=== PATIENT | male | born 1965 | race Caucasian/White ===

== ENCOUNTER 2019-06-19 15:49 | Observation (INO) | payer MEDICARE, MEDICAID ==
[2019-06-19] MEDS ORDERED: Aspirin Chewable 81 MG TAB ONE (16:10)
[2019-06-19 16:15] LABS: #Basophils 0.1 thou/uL (0.0-0.2); #Eosinphils 0.4 thou/uL (0.0-0.7); #Lymphocytes 2.2 thou/uL (1.20-3.40); #Monocytes 0.8 thou/uL (0.11-0.59); #Neutrophils 3.4 thou/uL (1.40-6.50); %Basophils 1.1 % (0.0-1.0); %Eosinophils 6.4 % (0.0-10.0); %Lymphocytes 31.8 % (21.0-51.0); %Monocytes 11.3 % (0.0-10.0); %Neutrophils 49.3 % (42.0-75.0); Hemoglobin 15.2 g/dL (14.0-18.0); Mean Corpuscular HGB CONC 35.5 g/dL (32.0-36.0); Mean Corpuscular Hemoglobin 30.8 pg (27.0-31.0); Mean Corpuscular Volume 86.6 fL (78.0-98.0); Mean Platelet Volume 6.5 fL (7.4-10.4); Platelet Count 290 thou/uL (130-400); RBC Distribution Width 11.6 % (11.5-14.5); Red Blood Cell (RBC) Count 4.94 mill/uL (4.70-6.10); White Blood Cell (WBC) Count 6.9 thou/uL (4.8-10.8)
--- NOTE | 2019-06-19 16:23 | RAD ---
XR Chest 1 View Portable History: Chest pain Comparison: None. Findings: The lungs are clear. No pneumothorax or effusion. Cardiac silhouette and mediastinal contou rs are within normal limits. Impression: No acute intrathoracic abnormality.
[2019-06-19 16:31] LABS: ALT (SGPT) 51 U/L (8-55); AST (SGOT) 32 U/L (5-34); Albumin 4.2 g/dL (3.5-5.0); Alkaline Phosphatase 93 U/L (40-150); Anion Gap 14 mmol/L (10-20); BUN (Urea Nitrogen) 15 mg/dL (8.4-25.7); Bilirubin, Total 0.4 mg/dL (0.2-1.2); CK (CPK) 139 U/L (30-200); Calc. Creatinine Clearance 0 mL/min (70-130); Calcium 9.2 mg/dL (7.8-10.44); Carbon Dioxide 27 mmol/L (22-29); Chloride 104 mmol/L (98-107); Estimated GFR-MDRD 86; Globulin 3.2 g/dL (2.4-3.5); Glucose 103 mg/dL (70-105); Potassium 3.5 mmol/L (3.5-5.1); Protein, Total 7.4 g/dL (6.0-8.3); Sodium 141 mmol/L (136-145)
[2019-06-19 20:10] VITALS: BMI 26.8
[2019-06-19 20:18] LABS: Troponin I Less than 0.010 ng/mL (< 0.028)
[2019-06-19] MEDS ORDERED: Finasteride 5 MG TAB PO SCH (23:00)
[2019-06-19] MEDS ORDERED: Ondansetron ODT 4 MG TAB PO PRN (23:06)
[2019-06-19] MEDS ORDERED: Ondansetron PF 4 MG/2 ML Vial IVP PRN (23:06)
[2019-06-19] MEDS ORDERED: Acetaminophen 325 MG TAB PO PRN (23:06)
[2019-06-19 23:21] LABS: Troponin I Less than 0.010 ng/mL (< 0.028)
--- NOTE | 2019-06-20 03:11 | HP ---
PRIMARY CARE PHYSICIAN: Dr. Salazar at [facility]. CHIEF COMPLAINT: Chest pain. HISTORY OF PRESENT ILLNESS: Mr. Hooks is a pleasant 54-year-old man with past medical history of hypertension, hyperlipidemia, atrial fibrillation, chronic systolic heart failure, and moderate coronary artery disease, who had presented to [facility] ER earlier today for chest pain that he experienced earlier this morning. He had stated that this chest pain was more of a chest tightness that he had felt that had radiated between his shoulder blades, he states that during this time he had gotten up, went over to give his a kiss and when he stood back up, he had felt the pain. He states that it lasted for roughly 30 minutes and that would come and go throughout the day. He had also noticed that his heart rate drop in the 30s and 40s and showed up in the 90s and it had done this over a period of 5 to 10 minutes. He also experienced some mild shortness of breath during this time as well. Therefore, the family and him spoke and felt that it was best that he was seen in the emergency department. Upon arriving, his chest pain had resolved at that time. He was noted to have a blood pressure systolically in the 100s and his pulse range in the 40s and 50s. His serial troponins were found to be negative. His EKG showed sinus jenny with a heart rate of 52, otherwise unremarkable. The patient has a history of atrial fibrillation, but has been in sinus rhythm and sinus jenny of 10s per patient. He states that he used to be under the care of Dr. Woodall in [place], [employer], he states ever since January that he has had multiple health problems. He states that he had undergone an echocardiogram, which showed a systolic heart failure of about 35%, he states he had then underwent heart catheterization back in March 2019, which displayed moderate coronary artery disease in his LAD. It was at that time that it was determined that his systolic heart function had slightly improved to 45%. He had since been transferred over care to Dr. Jorge Griggs, [employer], who had scheduled the patient for an outpatient echocardiogram, but he has since not undergone this. The patient's D-dimer was found to be negative at 0.40, and portable chest x-ray was also negative at this time. It was determined at that time the patient be transferred to [facility] for further evaluation and management of his symptoms. Upon arriving, the patient denied any fever, chills, any headache, blurred vision, dizziness, any chest pain, palpitations, shortness of breath, abdominal pain, nausea, or vomiting. He had remained in sinus jenny on the monitor with rates in the 40s. REVIEW OF SYSTEMS: All other systems reviewed and found to be negative unless mentioned in the HPI. PAST MEDICAL HISTORY: Hypertension, hyperlipidemia, chronic systolic heart failure, atrial fibrillation, coronary artery disease. PAST SURGICAL HISTORY: Oral surgery. He had all his teeth removed. PSYCHIATRIC HISTORY: None. SOCIAL HISTORY: The patient is a former tobacco smoker. He has a 25 pack-year history. He denies alcohol or illicit drug use. KNOWN ALLERGIES: Tramadol. CURRENT HOME MEDICATIONS: 1. Aspirin 325 mg oral daily. 2. Eliquis 5 mg oral b.i.d. 3. Finasteride 5 mg oral daily. 4. Furosemide 40 mg oral daily. 5. Tamsulosin 0.4 mg oral twice daily. The patient used to take lisinopril; however, was unable to tolerate that, which was transitioned to losartan, which he also could not tolerate. Therefore, these both were discontinued and he used to be on carvedilol; however, this was discontinued secondary to bradycardia. PHYSICAL EXAMINATION: VITAL SIGNS: BP 112/68, pulse 45, respirations 18, temperature 97.8 degrees, O2 saturation 98% on room air. GENERAL: The patient is awake, alert, and oriented x3. He is currently lying comfortably in bed with multiple family members at bedside, in no acute distress at this time. HEENT: Atraumatic, normocephalic. Pupils are round and reactive to light. Extraocular muscles intact. Moist mucous membranes noted. Edentulous noted. NECK: Soft, supple. Trachea midline. CARDIOVASCULAR: Positive S1 and S2. Regular rate and rhythm; however, is bradycardic with rates in the 40s. No murmur auscultated. RESPIRATORY: Clear to auscultation bilaterally. No wheezes, rales, or rhonchi. ABDOMEN: Soft, nontender. Bowel sounds present. MUSCULOSKELETAL: Strength 5+ bilaterally upper and lower extremities. Moves all extremities equal. No edema noted. NEUROLOGIC: Cranial nerves 2 through 12 grossly intact. No focal deficits noted. Speech intact and normal. Gait not assessed. SKIN: Warm, dry, and intact. No rashes. No ulceration noted. PSYCHIATRIC: Good mood and affect. LABORATORY DATA: WBC 6.9, RBC 4.94, hemoglobin 15.2, platelet 290. D-dimer 0.40. Sodium 141, potassium 3.5, anion gap 14, BUN 15, creatinine 0.92, estimated GFR 86, glucose 103, AST 32, ALT 51. Troponin less than 0.010 x2. CK 139. DIAGNOSTIC IMAGING: Portable chest x-ray showed no acute intrathoracic abnormality. ASSESSMENT AND PLAN: 1. Chest pain. The patient with a history of moderate coronary artery disease along with systolic heart failure seen on previous echocardiogram and heart catheterization. We will obtain a repeat echocardiogram and consult Cardiology Services for further evaluation. Serial troponins were found to be negative x2 thus far. He will also be continued on his home regimen at this time. However, his home dose of Eliquis will be held until further recommendation from Cardiology Services. 2. History of systolic heart failure, the patient was found to have an ejection fraction of 35% seen on echocardiogram back in January 2019 and then 45% seen on heart catheterization in March 2019. Continue home dose of furosemide. No other home regimen. He was not able to tolerate lisinopril, losartan, or Coreg. 3. History of moderate coronary artery disease, which was found on heart catheterization, 50% blockage at the left anterior descending. 4. Atrial fibrillation, currently in sinus bradycardia at this time with rates in the 40s. 5. Bradycardia. As per #1, we will consult Cardiology Services and hold any possible causing medications. 6. Hyperlipidemia. He is not on any statin therapy at this time due to side effects. 7. Deep venous thrombosis and gastrointestinal prophylaxis. 8. Code status, full code. DISPOSITION: Pending further workup and clinical findings. Job ID: [id number]
[2019-06-20 05:22] LABS: #Basophils 0.1 thou/uL (0.0-0.2); #Eosinphils 0.4 thou/uL (0.0-0.7); #Lymphocytes 2.1 thou/uL (1.20-3.40); #Monocytes 0.8 thou/uL (0.11-0.59); #Neutrophils 5.2 thou/uL (1.40-6.50); %Basophils 0.7 % (0.0-1.0); %Eosinophils 4.7 % (0.0-10.0); %Lymphocytes 24.7 % (21.0-51.0); %Monocytes 9.4 % (0.0-10.0); %Neutrophils 60.4 % (42.0-75.0); Hemoglobin 15.3 g/dL (14.0-18.0); Mean Corpuscular HGB CONC 33.4 g/dL (32.0-36.0); Mean Corpuscular Volume 89.7 fL (78.0-98.0); Mean Platelet Volume 7.6 fL (7.4-10.4); Platelet Count 282 thou/uL (130-400); RBC Distribution Width 12.1 % (11.5-14.5); Red Blood Cell (RBC) Count 5.09 mill/uL (4.70-6.10); White Blood Cell (WBC) Count 8.7 thou/uL (4.8-10.8)
[2019-06-20 05:36] LABS: Anion Gap 13 mmol/L (10-20); BUN (Urea Nitrogen) 14 mg/dL (8.4-25.7); Calc. Creatinine Clearance 155 mL/min (70-130); Calcium 9.4 mg/dL (7.8-10.44); Carbon Dioxide 26 mmol/L (22-29); Cardiac Risk 3.5 (Less than 4.5); Chloride 103 mmol/L (98-107); Cholesterol 133 mg/dl (< 200 Desired); Estimated GFR-MDRD Greater than 90; Glucose 105 mg/dL (70-105); HDL Cholesterol 38 mg/dL (>60 Neg Risk); LDL Cholesterol, Calculated 84 mg/dL; Potassium 3.5 mmol/L (3.5-5.1); Sodium 138 mmol/L (136-145); Triglycerides 57 mg/dL (Less than 150)
[2019-06-20] MEDS: Tamsulosin HCl 0.4 MG CAP PO SCH (09:08)
[2019-06-20] MEDS: Aspirin 81 mg Enteric Coated Tablet PO SCH (09:08)
[2019-06-20] MEDS: Famotidine 20 MG TAB PO SCH ×2 (09:08→20:58)
[2019-06-20] MEDS: Furosemide 40 MG TAB PO SCH (09:09)
--- NOTE | 2019-06-20 11:08 | CON ---
DATE OF CONSULTATION: 06/20/2019 REASON FOR CONSULTATION: Chest pain and sinus bradycardia. PRIMARY STRAW HAT PLUNGER OPERATOR: Dr. Griggs. HISTORY OF PRESENT ILLNESS: Mr. Hooks is a very pleasant gentleman with a history of vyen-kc-btvraica coronary artery disease, sinus bradycardia, and mild cardiomyopathy, admitted with chest pressure and bradycardia. Mr. Hooks went to the emergency room at [facility] last night. He had chest pain and pressure and he also noticed that his heart rates were in the 30s and 40s. When he gets low heart rate, his blood pressure also decreases. He had negative cardiac enzymes, but was sent here to this institution for further evaluation. The patient did have previous evaluation at [facility], initially had an ejection fraction of 35%, later improved to 45%, could not tolerate beta blockers due to bradycardia. He has been maintained on medicines for congestive heart failure, but just really did not feel well on that, especially when his heart rate go low. PAST MEDICAL HISTORY: 1. Paroxysmal atrial fibrillation. 2. Sinus bradycardia. PAST SURGICAL HISTORY: Oral surgery. MEDICATIONS: Prior to admission; 1. Aspirin. 2. Eliquis. 3. Furosemide. 4. Tamsulosin. REVIEW OF SYSTEMS: CONSTITUTIONAL: No significant weight gain or loss. VISION: No changes. HEARING: No changes. PULMONARY: No cough or wheezing. GASTROINTESTINAL: No nausea, vomiting, or diarrhea. SKIN: No rashes. NEUROLOGIC: No unilateral weakness or numbness. PSYCHIATRIC: No unusual depression or anxiety. PHYSICAL EXAMINATION: GENERAL: This is a pleasant 54-year-old man, resting comfortably, in no distress. VITAL SIGNS: Blood pressure 109/61, pulse in the 40s. HEENT: Eyes, sclerae nonicteric. Mouth, mucous membranes moist. NECK: Supple. No lymphadenopathy. LUNGS: Clear. No wheezing. CARDIAC: Normal S1, normal S2. There is no murmur, rub, or gallop. ABDOMEN: Soft and nontender. EXTREMITIES: Warm and dry. No clubbing or cyanosis or edema. Peripheral pulses are intact. PERTINENT LABORATORY DATA: Cardiac enzymes are negative. EKG shows sinus bradycardia. ASSESSMENT: 1. Symptomatic sinus bradycardia. 2. History of mild cardiomyopathy. 3. Mild coronary artery disease. Catheterization done just over a year ago showing 50% LAD lesion with otherwise mild luminal irregularities. PLAN: Echocardiogram is pending. If the ejection fraction is diminished, would recommend pacemaker defibrillator if it is over 40% pacemaker alone followed by beta-arian. Recommendations will be made after the echocardiogram is available for review and is reviewed. Job ID: [id number]
[2019-06-20] MEDS: Enoxaparin Sodium 40 MG/0.4 ML SYRINGE SC SCH (12:06)
--- NOTE | 2019-06-20 12:47 | PDOC.HOSPP ---
- Subjective Encounter Date: 06/20/19 Encounter Time: 10:00 Subjective: Patient examined and answered all questions from patient and his family. Dr. Flanagan has been by to see patient and we are waiting Echo results to decide the plan. Denies any new complaints. Reports fatigue after exertion, which is chronic. - Objective Vital Signs & Weight: Vital Signs (12 hours) Temp Pulse Resp BP BP Pulse Ox 06/20/19 11:55 97.5 F L 51 L 16 117/71 95 06/20/19 07:42 97.7 F 45 L 16 109/61 98 06/20/19 04:12 46 L 18 86/48 L 97 Weight Weight 105.279 kg Result Diagrams: 06/20/19 04:56 06/20/19 04:56 ROS - Review of Systems Constitutional: reports: malaise - Medication Medications: Active Medications Generic Name Dose Route Start Last Admin Trade Name Freq PRN Reason Stop Dose Admin Aspirin 81 mg 06/20/19 09:00 06/20/19 09:08 Ecotrin PO 81 mg DAILY NIDIA Administration Enoxaparin Sodium 40 mg 06/20/19 09:00 06/20/19 12:06 Lovenox SC 40 mg 0900 NIDIA Administration Famotidine 20 mg 06/20/19 09:00 06/20/19 09:08 Pepcid PO 20 mg BID NIDIA Administration Furosemide 40 mg 06/20/19 09:00 06/20/19 09:09 Lasix PO 40 mg DAILY NIDIA Administration Tamsulosin HCl 0.4 mg 06/20/19 09:00 06/20/19 09:08 Flomax PO 0.4 mg DAILY NIDIA Administration - Exam Heart: RRR, no murmur Heart - other findings: bradycardic Respiratory: normal chest expansion, no tachypnea Gastrointestinal: soft, non-tender Neurological: CN's grossly intact Musculoskeletal: normal strength Psychiatric: normal affect Hosp A/P (1) Chest pain Code(s): R07.9 - CHEST PAIN, UNSPECIFIED Status: Acute (2) Bradycardia Code(s): R00.1 - BRADYCARDIA, UNSPECIFIED Status: Acute (3) Heart failure Code(s): I50.9 - HEART FAILURE, UNSPECIFIED Status: Chronic (4) Hypertension Code(s): I10 - ESSENTIAL (PRIMARY) HYPERTENSION Status: Chronic (5) Hyperlipidemia Code(s): E78.5 - HYPERLIPIDEMIA, UNSPECIFIED Status: Chronic - Plan Awaiting Echo results and discussion by Dr. Flanagan to patient and family on his recommendations once Echo is read. Dr. Flanagan's note stated pacemaker vs AICD under consideration. Patient expressed to me the desire to agree with whichever option will give him the best quality of life. Reports he does not want to prolong his life if either the AICD or pacemaker do not help him get back to doing the things he loves and improve the quality. patient continues to remain bracycardic, BP on the lower side of normal ranges.
[2019-06-20] MEDS ORDERED: Finasteride 5 MG TAB PO SCH (21:00)
[2019-06-21] MEDS ORDERED: CEFAZOLIN 2 GM in Sodium Chloride 0.9% 100 ML IVPB SCH (06:00)
[2019-06-21] MEDS: Enoxaparin Sodium 40 MG/0.4 ML SYRINGE SC SCH (08:13)
[2019-06-21] MEDS: Aspirin 81 mg Enteric Coated Tablet PO SCH (08:13)
[2019-06-21] MEDS: Famotidine 20 MG TAB PO SCH (08:14)
[2019-06-21] MEDS: Tamsulosin HCl 0.4 MG CAP PO SCH (08:14)
[2019-06-21] MEDS: Furosemide 40 MG TAB PO SCH (08:14)
[2019-06-21] MEDS ORDERED: Lidocaine 1% (PF) 30 ML VIAL ONE ×2 (09:45→11:38)
[2019-06-21] MEDS ORDERED: ceFAZolin Sodium (SDC) 2 GM/100 ML BAG ONE ×3 (11:14→11:15)
[2019-06-21] MEDS ORDERED: Midazolam HCl 2 mg/2 ml Vial ONE ×2 (11:22→11:35)
[2019-06-21] MEDS ORDERED: Fentanyl 100 MCG/2 ML VIAL ONE (11:23)
[2019-06-21] MEDS ORDERED: Acetaminophen/Codeine 30-300mg Tablet PO PRN ×2 (12:45)
--- NOTE | 2019-06-21 12:58 | RAD ---
EXAM: Portable chest PROVIDED CLINICAL HISTORY: Post cardiac device placement COMPARISON: 06/19/2019 FINDINGS: Interval placement of left subclavian cardiac pacing device, with lead tips projecting over expected locations of RA and RV. Cardiac and mediastinal silhouette is within normal limits. No focal consolidation, pleural fluid or pneumothorax evident. IMPRESSION: No evidence for an acute cardiopulmonary process.
[2019-06-21] MEDS: Cephalexin 250 MG CAP PO SCH ×2 (13:34→17:43)
--- NOTE | 2019-06-21 13:45 | CON ---
DATE OF CONSULTATION: 06/21/2019 HISTORY OF PRESENT ILLNESS: I am seeing Mr. 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 His problems are; 1. Near syncopal spell with tachy-jenny syndrome, sick sinus syndrome, and intolerance to beta blockers. 2. Paroxysmal atrial fibrillation, previously documented by event monitors. 3. Atypical chest pains on presentation. a. Left heart catheterization on March 18, 2019, demonstrates a 50% mid LAD, plaquing of the RCA and circumflex only. b. Reduced LVEF at the 35% improving to 45% more recently. Risk factors including hyperlipidemia and tobacco abuse. ALLERGIES: TRAMADOL. MEDICATIONS: At home included; 1. Tylenol. 2. Flomax. 3. Furosemide. 4. Proscar. 5. Aspirin. 6. Eliquis 5 mg twice a day. SUBJECTIVE: Mr. Hooks was admitted with symptoms of chest pains shooting to his back in between the shoulder blades, somewhat positional, lasts roughly about 30 minutes. He also noted though his heart is fluctuating. Heart rates in the 30s up to the 90s in period of 5 to 10 minutes. He had associated dyspnea. By the time EMS got there, his heart rates were in the 40s and 50s. His blood pressure was also in the 100s. Previously, he was noted to have atrial fibrillation by event monitor. He was known to have atrial fibrillation episodes per the prior technical engineer note. He was intolerant to beta blockers, hence marked bradycardia and near syncopal spells. On monitor, he continues to have episodes of slower heart beatings in the 40s and 50s. No atrial fibrillation recurrence is noted or since the admission. He is feeling overall better currently. Denies chest pains. No fever, chills, or cough. No stroke-like symptoms. No neurological deficits. Usually, he is on an Eliquis medication, but that has been on hold since admit. Rest of 12-point review of system otherwise unremarkable. PAST MEDICAL HISTORY: Past history as above and the patient has had issues for the last 6 months with rapid heartbeats, chest pains, and underwent a heart catheterization by a technical engineer in [place] and was placed on Eliquis. Again, beta arian was not tolerated at that time. Now, he is cared by Dr. Griggs as an outpatient. PAST SURGICAL HISTORY: Significant for oral surgery and all of his teeth were removed in the past. SOCIAL HISTORY: The patient is a former tobacco smoker, 25 pack per years. No ETOH or drug abuse. FAMILY HISTORY: Not contributory. PHYSICAL EXAMINATION: VITAL SIGNS: Blood pressure 100/58, heart rate 50, respirations 18, temperature 97.7 degrees Fahrenheit, and oxygen saturation is 94% to 96%. GENERAL: Alert and oriented man, in no apparent distress. NECK: Supple. Jugular veins not distended. CHEST: Coarse without crackles. HEART: Sounds are regular to rate and rhythm. No murmur or gallop. ABDOMEN: Benign. Bowel sounds positive. EXTREMITIES: Lower extremities without edema, clubbing, or cyanosis. Pulses are adequate. NEUROLOGIC: The patient is nonfocal. MUSCULOSKELETAL: Without joint swelling or deformity. SKIN: Without rash. DATABASE: EKGs at baseline reveal sinus bradycardia, rate of 52 beats per minute. No significant ST-T changes. LABORATORY DATA: White cell count is 8.7, hemoglobin is 15.3, and platelet count is 282. The D-dimer is 0.4. Sodium 138, potassium 3.5, BUN is 14, and creatinine 0.83. The patient's total cholesterol is 133, LDL 84, and HDL 38. TSH 1.11. 2D echo report from this admission reveals LVEF 40% to 45%. ASSESSMENT AND PLAN: Mr. Hooks is a 54-year-old man with history of cardiomyopathy, likely nonischemic, although he has some mild nonobstructive to gvyh-hy-smmjkber nonspecific coronary artery disease as noted above. His LVEF seems to be improved overtime. He is on angiotensin-converting enzyme inhibitor only, hence he cannot tolerate beta-arian sufficiently. He does have episodes of atrial fibrillation, high symptomatic, but he also is markedly symptomatic with bradycardia even in the absence of beta blockers. He has dizzy spells and although has not completely passed out. He clearly has sinus node disease and some degree of tachy-jenny syndrome. We discussed treatment options. We discussed the benefit of pacing in his condition, which would allow us to increase his beta-arian medication or antiarrhythmic agents to control his atrial fibrillation. Alternatives of ablation procedure also discussed, but at this point, he is not interested in that just yet. The detail of the procedure, including risk of infection, bleeding, pneumothorax, tamponade, device malfunction, lead dislodgement, and recalls. He understands and willing to proceed. We will proceed with pacemaker as possible. Thank you again for letting me to participate in the care of this patient. Job ID: [id number]
[2019-06-21] MEDS ORDERED: Iopamidol 370 76% 50 ML VIAL FS ONE (15:05)
[2019-06-21 15:43] VITALS: BP 125/79; TEMP 97.8
[2019-06-21] MEDS ORDERED: Carvedilol 6.25 MG TAB PO SCH (21:00)
[2019-06-21] MEDS ORDERED: Tamsulosin HCl 0.4 MG CAP PO SCH (21:00)
--- NOTE | 2019-06-25 15:39 | EKG ---
Test Reason : CHEST Blood Pressure : / mmHG Vent. Rate : 052 BPM Atrial Rate : 052 BPM P-R Int : 154 ms QRS Dur : 082 ms QT Int : 472 ms P-R-T Axes : 024 004 026 degrees QTc Int : 438 ms Sinus bradycardia Otherwise normal ECG Confirmed by CROW MARTIN ([id number]), desk editor TERENCE QUICK ([id number]) on 06/25/2019 3:39:20 PM Referred By: Cedric MARTIN Confirmed By:CROW MARTIN
== END 2019-06-21 17:59 | disposition home or self-care (01) ==
LOC: SCSER 15:49 → 2SW 17:53
PROVIDERS: ADMIT Family Medicine; ATTEND Family Medicine
PROC: 0JH607Z Insertion of Cardiac Resynchronization Pacemaker Pulse Generator into Chest Subcutaneous Tissue and Fascia, Open Approach (ICD-10-PCS; principal; 2019-06-19)
PROC: 02H73JZ Insertion of Pacemaker Lead into Left Atrium, Percutaneous Approach (ICD-10-PCS; 2019-06-19)
PROC: 02HK3JZ Insertion of Pacemaker Lead into Right Ventricle, Percutaneous Approach (ICD-10-PCS; 2019-06-19)
PROC: 02HL3JZ Insertion of Pacemaker Lead into Left Ventricle, Percutaneous Approach (ICD-10-PCS; 2019-06-19)
DX: I49.5 Sick sinus syndrome (principal); I11.0 Hypertensive heart disease with heart failure; I50.42 Chronic combined systolic (congestive) and diastolic (congestive) heart failure; E78.5 Hyperlipidemia, unspecified; I25.10 Atherosclerotic heart disease of native coronary artery without angina pectoris; I48.0 Paroxysmal atrial fibrillation; R07.89 Other chest pain; H54.8 Legal blindness, as defined in USA; Z79.82 Long term (current) use of aspirin; Z79.01 Long term (current) use of anticoagulants; Z79.899 Other long term (current) drug therapy; Z87.891 Personal history of nicotine dependence; Z88.5 Allergy status to narcotic agent
CPT/HCPCS: 33208; 36005; 71045 ×2; 75820; 80048; 80053; 80061; 82550; 84443; 84484 ×2; 85025 ×2; 85379; 93005; 93306; 96372; 99285; C1785; C1898; G0378 ×4; 36415; 99152; 99153; J0690; J1650; J2001; J2250; J3010; J3490

== ENCOUNTER 2019-08-16 18:26 | Inpatient (IN) | payer MEDICARE, MEDICAID ==
[2019-08-16] MEDS ORDERED: Acetaminophen 325 MG TAB PO PRN (21:01)
[2019-08-16] MEDS ORDERED: Vancomycin HCl 1 GM in Premix Bag 1 BAG IVPB SCH (21:15)
[2019-08-16] MEDS ORDERED: Ondansetron PF 4 MG/2 ML Vial IVP PRN (23:10)
[2019-08-16] MEDS ORDERED: Ondansetron ODT 4 MG TAB PO PRN (23:10)
[2019-08-16] MEDS ORDERED: Acetaminophen 500 MG TAB PO PRN (23:12)
--- NOTE | 2019-08-17 04:20 | HP ---
PRIMARY CARE DOCTOR: None reported. CODE STATUS: Full code. TIME OF EVALUATION: 10:55 p.m. CHIEF COMPLAINT: Redness in the pacemaker pocket. HISTORY OF PRESENT ILLNESS: This is a 54-year-old male patient with past medical history of recent placement of pacemaker. Also, the patient is legally blind, coronary artery disease, congestive heart failure, hyperlipidemia, high cholesterol, came to the hospital after having redness surrounding the area of the recent pacemaker placed pocket. That redness was associated with purulent drainage from surgical wound. Symptoms have been present for the past few days. After some antibiotic had been given, symptoms have gotten worse. Dr. Welch has seen the patient and has admitted the patient. The patient likely to go for procedure tomorrow to get the pacemaker removed. Symptoms were mild with no clear triggers, no alleviating factors. REVIEW OF SYSTEMS: CONSTITUTIONAL: No fever, chills, or generalized weakness. RESPIRATORY: No cough, sputum production or shortness of breath. CARDIOVASCULAR: No chest pain or palpitation. GASTROINTESTINAL: No nausea, vomiting, diarrhea, or abdominal pain. DAIRY NUTRITION CONSULTANT: No dizziness, headache or feeling lightheaded. GENITOURINARY: No burning on urination. EXTREMITIES: No leg swelling. SKIN: Warm and intact. No pallor. No rash. No redness except for the area surrounding the PPM pocket that is red and swollen with purulent drainage. All other systems were reviewed and negative except for the findings mentioned above. PAST MEDICAL HISTORY: As mentioned in the HPI. PAST SURGICAL HISTORY: Oral surgery, all teeth removed and also recent pacemaker placement. PSYCHIATRIC HISTORY: No previous psych history. SOCIAL HISTORY: No drug use. He is a former tobacco user. Smokes cigarettes. The patient quit smoking in the past year. Tobacco history, smoked for 25 years. FAMILY HISTORY: Reviewed and noncontributory to current presentation. KNOWN ALLERGIES: Tramadol. REPORTED MEDICATIONS: Aspirin tablets, Eliquis, finasteride, furosemide, tamsulosin. PHYSICAL EXAMINATION: VITAL SIGNS: On presentation, 105/71 for blood pressure with heart rate 58, respiratory rate was 18, and temperature 98.3. GENERAL APPEARANCE: The patient is alert and oriented, not in acute distress. HEENT: Eyes, normal conjunctivae. Moist oral mucosa. Anicteric. No JVD. RESPIRATORY: Bilateral air entry. No rales. No wheezes. Symmetric expansion. CARDIOVASCULAR: Normal rate, regular rhythm. No murmurs. No edema. ABDOMEN: Soft. Normal bowel sounds. MUSCULOSKELETAL: Baseline range of motion and strength. SKIN: Warm and intact. No pallor. No rash except for the area surrounding the pacemaker pocket is red, swollen, fluctuant and has purulent drainage from the surgical wound. Capillary refill seems to be intact. NEURO: No evidence of any new focal weakness. Cranial nerves seems to be intact. PSYCH: The patient is in good mood. No anxiety. Optimal judgment. LABORATORY DATA: Labs were ordered. They are pending and will need to be followed. ASSESSMENT AND PLAN: The patient will be placed in the hospital with following medical problems: 1. The patient has infection of the pacemaker pocket. Procedure was done recently. The patient has been started on vancomycin and Dr. Caban has been consulted. Dr. Welch will do the pacemaker removal likely this morning and will plan for treatment of infection and then place a new one. 2. Skin cellulitis due to infection of the pocket. The patient receiving antibiotics and treatment as above. 3. History of gout, this is chronic, seems to be stable. Reconcile home medications. 4. History of BPH, is chronic, stable, reconcile home medications. 5. History of systolic dysfunction with ejection fraction of 40-45% in the last echo. We will reconcile home medication and adjust treatment as needed. This is chronic and seems to be stable. 6. Deep venous thrombosis prophylaxis. Job ID: [id number]
[2019-08-17 05:13] LABS: #Eosinphils 0.4 thou/uL (0.0-0.7); #Lymphocytes 2.1 thou/uL (1.20-3.40); #Monocytes 0.7 thou/uL (0.11-0.59); #Neutrophils 2.8 thou/uL (1.40-6.50); %Basophils 0.7 % (0.0-1.0); %Eosinophils 6.8 % (0.0-10.0); %Lymphocytes 35.1 % (21.0-51.0); %Monocytes 11.3 % (0.0-10.0); %Neutrophils 46.1 % (42.0-75.0); Hemoglobin 14.5 g/dL (14.0-18.0); Mean Corpuscular HGB CONC 34.2 g/dL (32.0-36.0); Mean Corpuscular Hemoglobin 30.6 pg (27.0-31.0); Mean Corpuscular Volume 89.6 fL (78.0-98.0); Mean Platelet Volume 7.3 fL (7.4-10.4); Platelet Count 281 thou/uL (130-400); RBC Distribution Width 11.8 % (11.5-14.5); Red Blood Cell (RBC) Count 4.72 mill/uL (4.70-6.10); White Blood Cell (WBC) Count 6.1 thou/uL (4.8-10.8)
[2019-08-17 05:32] LABS: Anion Gap 12 mmol/L (10-20); BUN (Urea Nitrogen) 16 mg/dL (8.4-25.7); Calc. Creatinine Clearance 154 mL/min (70-130); Calcium 9.2 mg/dL (7.8-10.44); Carbon Dioxide 30 mmol/L (22-29); Chloride 102 mmol/L (98-107); Estimated GFR-MDRD Greater than 90; Glucose 105 mg/dL (70-105); Potassium 3.9 mmol/L (3.5-5.1); Sodium 140 mmol/L (136-145)
[2019-08-17] MEDS: Aspirin 81 mg Enteric Coated Tablet PO SCH (08:57)
[2019-08-17] MEDS: Enoxaparin Sodium 40 MG/0.4 ML SYRINGE SC SCH (08:57)
[2019-08-17] MEDS: Tamsulosin HCl 0.4 MG CAP PO SCH (08:57)
[2019-08-17] MEDS ORDERED: Vancomycin HCl 1 GM in Premix Bag 1 BAG IVPB SCH (09:00)
[2019-08-17] MEDS ORDERED: Lidocaine 1% (PF) 30 ML VIAL ONE (14:46)
[2019-08-17] MEDS ORDERED: Midazolam HCl 2 mg/2 ml Vial ONE (14:52)
[2019-08-17] MEDS ORDERED: Fentanyl 100 MCG/2 ML VIAL ONE ×3 (14:52→16:27)
[2019-08-17] MEDS ORDERED: Propofol 500 MG/50 ML VIAL ONE (14:52)
[2019-08-17] MEDS ORDERED: Ondansetron HCl/PF 4 MG/2 ML Vial IVP PRN (15:38)
[2019-08-17] MEDS ORDERED: HYDROmorphone 2 MG/ML VIAL SLOW IVP PRN (15:38)
[2019-08-17] MEDS ORDERED: Promethazine HCl 25 MG/ML VIAL SLOW IVP PRN (15:38)
[2019-08-17] MEDS ORDERED: Promethazine HCl 25 MG/ML VIAL IM PRN (15:38)
--- NOTE | 2019-08-17 15:40 | CON ---
DATE OF CONSULTATION: 08/17/2019 REASON FOR CONSULTATION: Pacemaker infection. HISTORY OF PRESENT ILLNESS: A 54-year-old with history of sick sinus syndrome, coronary artery disease, blindness, and hyperlipidemia, who recently underwent placement of pacemaker in left subclavian position and now he has developed drainage with inflammatory changes, pain, and swelling. Dr. Welch has given the patient Keflex twice in the outpatient setting, but that has not improved the situation. The patient is having the pacer removed. He otherwise denies headaches. No sore throat, odynophagia, or dysphagia. No dyspnea. He does have some chest pain at the pacer site, but no abdominal pain. No genitourinary symptoms. No diarrhea. No constipation. No joint symptoms. PAST MEDICAL HISTORY: Sick sinus syndrome, visual impairment, coronary artery disease, CHF, hyperlipidemia, pacemaker insertion recently, and gout. PAST SURGICAL HISTORY: Removal of teeth. PSYCH HISTORY: Negative. SOCIAL HISTORY: Former smoker. [place]. . 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 FAMILY HISTORY: Noncontributory. ALLERGIES: TRAMADOL. CURRENT MEDICATIONS: 1. Tylenol. 2. Ecotrin. 3. Colchicine. 4. Lovenox. 5. Proscar. 6. Lasix. 7. Zofran. 8. Tamsulosin. 9. Vancomycin. PHYSICAL EXAMINATION: VITAL SIGNS: Have been normal since admission. SKIN: Shows the area of the pacemaker pocket, which is swollen and tender. There is a mild pink erythema extending towards the lower left lateral chest and towards the clavicle. The incision right above the pacer pocket site with small opening, which is draining purulent exudate. No lymphadenopathy. HEENT: Noncontributory. LUNGS: Clear to auscultation and percussion. HEART: S1 and S2 without murmurs. ABDOMEN: Soft, not distended or tender. No ascites. No bladder distention. EXTREMITIES: No joint inflammatory activity. Moves all extremities equally. NEUROLOGIC: He knows his name, recognizes family members. Follows commands. LABORATORY STUDIES: White cell count is 6.1, hemoglobin 14.5, and platelets 281. Chemistry showed normal creatinine and a sample from the pacer site drainage was submitted for cultures. No imaging studies are seen for this time. ASSESSMENT: 1. Sick sinus syndrome, congestive heart failure. 2. Pacemaker insertion, now with an obvious infection of the pacer pocket site. DISCUSSION: This case would not be eligible for conservative management. He needs to have the device and the leads removed and then, a new device placed in the contralateral side subsequently. We will wait for the culture results and see which drug to be used for the next few days for treatment. If blood cultures remain negative, then treatment would last until there is full granulation of the area and resolution of inflammatory process. The nature of the medication to be determined by the culture results as well as the duration of treatment. Job ID: [id number]
--- NOTE | 2019-08-17 16:51 | OP ---
DATE OF PROCEDURE: 08/17/2019 PROCEDURE PERFORMED: Pacemaker extraction. ADDITIONAL REFERRING PHYSICIAN: Dr. Griggs. REASON FOR PROCEDURE: Mr. Hooks is a 54-year-old man with history of tachy-jenny syndrome, sick sinus syndrome, and paroxysmal atrial fibrillation, who is presenting with marked bradycardia originally back in June, underwent a dual-chamber pacemaker implantation. He did develop a hematoma and subsequent difficult healing of his prepectoral pocket was noted. He otherwise discharged in worsening pocket tenderness. There is a possibility of infection spread to the pacemaker pocket and a fistula formation. Pacing was programmed down and no ventricular pacing noted at 30 beats per minute at this point. DESCRIPTION OF PROCEDURE: The patient received general anesthesia by Anesthesia specialist. After adequate level of sedation achieved, the lidocaine was used to anesthetized the prepectoral area after adequate prep and drape. An incision was made over the prior incision and the device was extracted. The leads were removed as well after unwinding the fixation coil mechanism, which were removed with simple traction without difficulty. Following that, hemostasis was obtained and the pocket was packed with iodoform strips and pressure dressing applied. Cine revealed no change in cardiac silhouette. The patient tolerated the procedure well. PLAN: 1. Continue antibiotics. 2. Culture sent for wound culture, follow on that. 3. Monitor on telemetry number. 4. Consider pacemaker implantation shortly once no systemic infection is ascertained. 5. Hold anticoagulants for now. Job ID: [id number]
[2019-08-17] MEDS ORDERED: Acetaminophen/Codeine 30-300mg Tablet PO PRN (17:22)
[2019-08-17] MEDS: Furosemide 40 MG TAB PO SCH (18:36)
[2019-08-17] MEDS: Acetaminophen/Codeine 30-300mg Tablet PO PRN (19:26)
[2019-08-17] MEDS: Finasteride 5 MG TAB PO SCH (20:23)
[2019-08-18] MEDS: Acetaminophen/Codeine 30-300mg Tablet PO PRN ×5 (00:24→20:06)
[2019-08-18] MEDS: Furosemide 40 MG TAB PO SCH (08:49)
[2019-08-18] MEDS: Tamsulosin HCl 0.4 MG CAP PO SCH (08:49)
[2019-08-18] MEDS: Aspirin 81 mg Enteric Coated Tablet PO SCH (08:49)
[2019-08-18] MEDS: Enoxaparin Sodium 40 MG/0.4 ML SYRINGE SC SCH (08:58)
[2019-08-18] MEDS: Morphine 2 MG/ML SYRINGE SLOW IVP PRN (09:41)
[2019-08-18] MEDS ORDERED: Lidocaine 4% Topical Sol 50 ML BOT TOP SCH (09:45)
--- NOTE | 2019-08-18 12:22 | PDOC.CPN ---
- Subjective Date: 08/18/19 Time: 08:00 Interval history: overall feeling well this AM. +pain at PPM explant site. + drainage from PPM pocket. denies fever, chills, malaise - Review of Systems General: denies: fever/chills, weight/appetite/sleep changes, night sweats, fatigue Cardiovascular: denies: chest pain, palpitation, edema, paroxysmal nocturnal dyspnea, orthopnea Gastrointestinal: denies: nausea, vomiting, diarrhea, constipation, abd pain, GI bleeding Musculoskeletal: denies: pain, tenderness, stiffness, swelling, arthritis/ arthralgias Neurological: denies: numbness, syncope, seizure, weakness - Objective Allergies/Adverse Reactions: Allergies Allergy/AdvReac Type Severity Reaction Status Date / Time allopurinol Allergy Rash Verified 08/16/19 19:49 tramadol Allergy syncope Verified 08/16/19 19:49 Visit Medications: Current Medications Acetaminophen (Tylenol) 650 mg PO Q4H PRN PRN Reason: Fever/MILD Pain 1-3 Acetaminophen (Tylenol) 1,000 mg PO BID PRN PRN Reason: Pain Last Admin: 08/17/19 08:56 Dose: 1,000 mg Acetaminophen/Codeine Phosphate (Tylenol #3) 1 tab PO Q4H PRN PRN Reason: Mild Pain (1-3) Acetaminophen/Codeine Phosphate (Tylenol #3) 2 tab PO Q4H PRN PRN Reason: Moderate Pain (4-6) Last Admin: 08/18/19 11:10 Dose: 2 tab Aspirin (Ecotrin) 81 mg PO DAILY [facility] Last Admin: 08/18/19 08:49 Dose: 81 mg Colchicine (Colchicine) 0.6 mg PO DAILY [facility] Last Admin: 08/18/19 09:50 Dose: 0.6 mg Enoxaparin Sodium (Lovenox) 40 mg SC 0900 [facility] Last Admin: 08/18/19 08:58 Dose: Not Given Finasteride (Proscar) 5 mg PO HS [facility] Last Admin: 08/17/19 20:23 Dose: 5 mg Furosemide (Lasix) 40 mg PO DAILY [facility] Last Admin: 08/18/19 08:49 Dose: 40 mg Vancomycin HCl 2 gm/ Sodium (Chloride) 500 mls @ 250 mls/hr IVPB 0100,1300 [facility] Last Admin: 08/18/19 00:26 Dose: 500 mls Lidocaine HCl (Xylocaine 4% Topical Ladan) 0 ml TOP NOW NIDIA Stop: 08/18/19 21:00 Last Admin: 08/18/19 09:51 Dose: 1 bot Miscellaneous Medication (Pharmacy To Dose) 1 each IVPB PRN PRN PRN Reason: Pharmacy to dose Morphine Sulfate (Morphine) 2 mg SLOW IVP Q6H PRN PRN Reason: Severe Pain (7-10) Last Admin: 08/18/19 09:41 Dose: 2 mg Ondansetron HCl (Zofran Odt) 4 mg PO Q6H PRN PRN Reason: Nausea/Vomiting Ondansetron HCl (Zofran) 4 mg IVP Q6H PRN PRN Reason: Nausea/Vomiting Sodium Chloride (Flush - Normal Saline) 10 ml IVF Q12HR [facility] Last Admin: 08/18/19 09:49 Dose: 10 ml Sodium Chloride (Flush - Normal Saline) 10 ml IVF PRN PRN PRN Reason: Saline Flush Tamsulosin HCl (Flomax) 0.4 mg PO DAILY [facility] Last Admin: 08/18/19 08:49 Dose: 0.4 mg Vital Signs & Weight: Vital Signs Temp Pulse Resp BP Pulse Ox 08/18/19 12:02 97.7 F 66 14 114/74 94 L 08/18/19 07:50 98.2 F 56 L 11 L 108/57 L 95 08/18/19 04:00 98.3 F 58 L 18 110/63 94 L 08/18/19 00:53 97.9 F 56 L 16 119/64 96 Weight 243 lb 3 oz - Physical Exam General: alert & oriented x3, appears well, no apparent distress HEENT: mucus membranes moist, normocephaly Neck: supple neck, midline trachea Cardiac: regular rate and rhythm, no murmur Lungs: clear to auscultation, normal breath sounds Abdomen: unremarkable, active bowel sounds Extremities: no edema Skin: other (drsg to left chest wall CDI from PPM explant) - Labs Result Diagrams: 08/17/19 04:49 08/17/19 04:49 - Telemetry Sinus rhythms and dysrhythmias: sinus rhythm - Assessment/Plan Assessment/Plan: 1. Infected pacemaker/pocket - s/p explant on 08/17 - pocket culture sent 08/17: growing staph aureus - wound swab by ID sent: growing staph aureus - Infectious disease managing anbx - blood cultures pending (no growth thus far) - PRN T#3. Morphine IVP to help with acute pain during wound vac application/ management 2. Tachy-jenny syndrome with sinus node dysfunction - stopped all AV giancarlo blocking agents. so far heart rates are stable. No immediate need for temp pacer 3. Parox Atrial fibrillation - low burden previously seen on PPM - no OAC at this time CHADS2-VAC: 1 (hx CAD). On ASA which is adequate 4. JOHN -ordered CPAP Wound care consulted for wound vac to pocket and wound management. So far his heart rates have remained stable off beta blockers which were being used to treat his AFib. 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 Addendum: Spoke with Dr. Caban this afternoon. Starting bactroban to nares BID x 14 days and also hibiclens bath daily while hospitalized. His recommendation is to wait for blood culture results to finalize before PPM is placed. Likely DC home tomorrow and future OP PPM implant. Will discuss this with patient tomorrow
[2019-08-18 12:34] LABS: Vancomycin, Trough 15.8 ug/mL
--- NOTE | 2019-08-18 14:06 | PDOC.HOSPP ---
- Subjective Subjective: Seen and examined. Getting wound care currently and being pre-medicated with morphine. Discuss code status with significant other at bedside, recommended discussing after AICD placed. Patient has become fatigued with severe illness over the past two months when this all started. 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 - Objective Vital Signs & Weight: Vital Signs (12 hours) Temp Pulse Resp BP Pulse Ox 08/18/19 12:02 97.7 F 66 14 114/74 94 L 08/18/19 07:50 98.2 F 56 L 11 L 108/57 L 95 08/18/19 04:00 98.3 F 58 L 18 110/63 94 L Weight Weight 243 lb 3 oz I&O: 08/17/19 08/18/19 08/19/19 06:59 06:59 06:59 Intake Total 740 Balance 740 Result Diagrams: 08/17/19 04:49 08/17/19 04:49 Hospitalist ROS - Review of Systems All other systems reviewed; all pertinent +/- noted in HPI/Subj - Medication Medications: Active Medications Generic Name Dose Route Start Last Admin Trade Name Freq PRN Reason Stop Dose Admin Acetaminophen 1,000 mg 08/16/19 23:12 08/17/19 08:56 Tylenol PO 1,000 mg BID PRN Administration Pain Acetaminophen/Codeine Phosphate 2 tab 08/17/19 17:22 08/18/19 11:10 Tylenol #3 PO 2 tab Q4H PRN Administration Moderate Pain (4-6) Aspirin 81 mg 08/17/19 09:00 08/18/19 08:49 Ecotrin PO 81 mg DAILY [facility]IDIA Administration Colchicine 0.6 mg 08/18/19 09:00 08/18/19 09:50 Colchicine PO 0.6 mg DAILY [facility] Administration Enoxaparin Sodium 40 mg 08/17/19 09:00 08/18/19 08:58 Lovenox SC Not Given 09 NIDIA Finasteride 5 mg 08/17/19 21:00 08/17/19 20:23 Proscar PO 5 mg HS N[facility]IA Administration Furosemide 40 mg 08/17/19 09:00 08/18/19 08:49 Lasix PO 40 mg DAILY [facility] Administration Vancomycin HCl 2 gm/ Sodium 500 mls @ 250 mls/hr 08/17/19 01:00 08/18/19 13: 13 Chloride IVPB 500 mls 0100,1300 N[facility]IA Administration Lidocaine HCl 0 ml 08/18/19 09:45 08/18/19 09:51 Xylocaine 4% Topical Ladan TOP 08/18/19 21:00 1 bot NOW NIDIA Administration Morphine Sulfate 2 mg 08/18/19 09:13 08/18/19 09:41 Morphine SLOW IVP 2 mg Q6H PRN Administration Severe Pain (7-10) Sodium Chloride 10 ml 08/17/19 09:00 08/18/19 09:49 Flush - Normal Saline IVF 10 ml Q12HR NIDIA Administration Tamsulosin HCl 0.4 mg 08/17/19 09:00 08/18/19 08:49 Flomax PO 0.4 mg DAILY NIDIA Administration - Exam General Appearance: NAD, awake alert Eye: PERRL ENT: moist mucosa Neck: supple, symmetric, no lymphadenopathy Heart: RRR, no murmur, no gallops Respiratory: CTAB, no wheezes, no rales, no ronchi Gastrointestinal: soft, non-tender, non-distended, no guarding, no rigidity Extremities: no edema Skin: no lesions, no rashes Neurological: cranial nerve grossly intact, no weakness Musculoskeletal: no muscle wasting Psychiatric: normal affect, A&O x 3 Hosp A/P (1) Bradycardia Code(s): R00.1 - BRADYCARDIA, UNSPECIFIED Status: Chronic (2) Chest pain Code(s): R07.9 - CHEST PAIN, UNSPECIFIED Status: Chronic (3) Heart failure Code(s): I50.9 - HEART FAILURE, UNSPECIFIED Status: Chronic (4) Hyperlipidemia Code(s): E78.5 - HYPERLIPIDEMIA, UNSPECIFIED Status: Chronic (5) Hypertension Code(s): I10 - ESSENTIAL (PRIMARY) HYPERTENSION Status: Chronic - Plan Plan: medical unit with telemetry cardiology/electrophysiology specialists consultation, recommendations appreciated infectious disease consultation, recommendations appreciated AICD to be replaced when able IV antibiotics per infectious disease specialist wound with Staphylococcus aureus, sensitivity pending blood cultures negative to date continue home medications as able
--- NOTE | 2019-08-18 17:19 | PRG ---
DATE OF SERVICE: 08/18/2019 SUBJECTIVE: Mr. Hooks had removal of the device. He has mild pain at the site, better than yesterday. OBJECTIVE: VITAL SIGNS: He has been afebrile since admission. LUNGS: Clear. HEART: S1 and S2, regular rate. ABDOMEN: Soft. Not distended or tender. LABORATORY DATA: White cell count 6.1. Cultures with Staphylococcus aureus, pending susceptibility testing. Two sets of blood culture, no growth thus far. ASSESSMENT: Sick sinus syndrome with pacemaker placement, now postop infection with Staphylococcus aureus, pending susceptibility results. If the patient's blood cultures remain negative, then could discharge on oral antimicrobial therapy guided by the results of the susceptibility studies tomorrow. Once the infection is resolved and there is good granulation tissue, the final results of blood cultures out, then he is eligible for replacement with a new pacemaker. Job ID: [id number]
[2019-08-18] MEDS: Finasteride 5 MG TAB PO SCH (20:06)
[2019-08-18] MEDS: Mupirocin 2% Ointment 22 GM Tube TOP SCH (21:27)
[2019-08-19] MEDS: Acetaminophen/Codeine 30-300mg Tablet PO PRN ×5 (00:13→21:33)
[2019-08-19] MEDS: Furosemide 40 MG TAB PO SCH (08:48)
[2019-08-19] MEDS: Tamsulosin HCl 0.4 MG CAP PO SCH (08:48)
[2019-08-19] MEDS: Aspirin 81 mg Enteric Coated Tablet PO SCH (08:48)
[2019-08-19] MEDS: Enoxaparin Sodium 40 MG/0.4 ML SYRINGE SC SCH (08:50)
[2019-08-19] MEDS: Mupirocin 2% Ointment 22 GM Tube TOP SCH ×2 (08:51→21:47)
[2019-08-19 10:00] LABS: Anion Gap 12 mmol/L (10-20); BUN (Urea Nitrogen) 12 mg/dL (8.4-25.7); Calc. Creatinine Clearance 162 mL/min (70-130); Carbon Dioxide 29 mmol/L (22-29); Chloride 99 mmol/L (98-107); Estimated GFR-MDRD Greater than 90; Glucose 117 mg/dL (70-105); Potassium 3.6 mmol/L (3.5-5.1); Sodium 136 mmol/L (136-145)
[2019-08-19] MEDS ORDERED: Propofol 1,000 MG/100 ML VIAL IV ONE (10:26)
--- NOTE | 2019-08-19 14:37 | PDOC.HOSPP ---
- Subjective Subjective: Seen and examined. Many questions asked, all answered in detail. Patient happy with plan of care. Patient describes difficulty initiating urination he is on finasteride and tamsulosin, tamsulosin does have room to go up. Cultures pending on Staphylococcus aureus sensitivity this a.m. - Objective Vital Signs & Weight: Vital Signs (12 hours) Temp Pulse Resp BP Pulse Ox 08/19/19 08:00 97.9 F 48 L 18 111/69 100 08/19/19 04:16 97.4 F L 48 L 17 114/68 98 Weight Admit Weight 241 lb Weight 243 lb 3 oz Result Diagrams: 08/17/19 04:49 08/19/19 09:30 Hospitalist ROS - Review of Systems All other systems reviewed; all pertinent +/- noted in HPI/Subj - Medication Medications: Active Medications Generic Name Dose Route Start Last Admin Trade Name Freq PRN Reason Stop Dose Admin Acetaminophen 1,000 mg 08/16/19 23:12 08/17/19 08:56 Tylenol PO 1,000 mg BID PRN Administration Pain Acetaminophen/Codeine Phosphate 2 tab 08/17/19 17:22 08/19/19 10:58 Tylenol #3 PO 2 tab Q4H PRN Administration Moderate Pain (4-6) Aspirin 81 mg 08/17/19 09:00 08/19/19 08:48 Ecotrin PO 81 mg DAILY [facility]IA Administration Colchicine 0.6 mg 08/18/19 09:00 08/19/19 08:50 Colchicine PO 0.6 mg DAILY [facility] Administration Enoxaparin Sodium 40 mg 08/17/19 09:00 08/19/19 08:50 Lovenox SC Not Given 09 NIDIA Finasteride 5 mg 08/17/19 21:00 08/18/19 20:06 Proscar PO 5 mg HS [facility]IA Administration Furosemide 40 mg 08/17/19 09:00 08/19/19 08:48 Lasix PO 40 mg DAILY [facility] Administration Vancomycin HCl 2 gm/ Sodium 500 mls @ 250 mls/hr 08/17/19 01:00 08/19/19 12: 56 Chloride IVPB 500 mls 0100,1300 [facility] Administration Morphine Sulfate 2 mg 08/18/19 09:13 08/18/19 09:41 Morphine SLOW IVP 2 mg Q6H PRN Administration Severe Pain (7-10) Mupirocin 1 gm 08/18/19 21:00 08/19/19 08:51 Bactroban 2% Ointment TOP 1 applic BID NIDIA Administration Sodium Chloride 10 ml 08/17/19 09:00 08/19/19 08:56 Flush - Normal Saline IVF 10 ml Q12HR NIDIA Administration - Exam General Appearance: NAD Eye: PERRL, anicteric sclera ENT: normocephalic atraumatic, moist mucosa Neck: supple, symmetric, no lymphadenopathy Heart: no murmur, no gallops, no rubs Respiratory: CTAB, no wheezes, no rales, no ronchi Gastrointestinal: soft, non-tender, non-distended, no guarding, no rigidity Extremities: no edema Skin: no rashes Neurological: cranial nerve grossly intact, normal sensation to touch, no focal deficits Musculoskeletal: no muscle wasting Psychiatric: normal affect, A&O x 3 Hosp A/P (1) Bradycardia Code(s): R00.1 - BRADYCARDIA, UNSPECIFIED Status: Chronic (2) Chest pain Code(s): R07.9 - CHEST PAIN, UNSPECIFIED Status: Chronic (3) Heart failure Code(s): I50.9 - HEART FAILURE, UNSPECIFIED Status: Chronic (4) Hyperlipidemia Code(s): E78.5 - HYPERLIPIDEMIA, UNSPECIFIED Status: Chronic (5) Hypertension Code(s): I10 - ESSENTIAL (PRIMARY) HYPERTENSION Status: Chronic - Plan Plan: medical unit with telemetry cardiology/electrophysiology specialists consultation, recommendations appreciated infectious disease consultation, recommendations appreciated AICD to be replaced when able IV antibiotics per infectious disease specialist wound with Staphylococcus aureus, sensitivity pending blood cultures negative to date Finasteride for BPH Increase Flomax for BPH continue home medications as able
--- NOTE | 2019-08-19 14:42 | PDOC.CPN ---
- Subjective Date: 08/19/19 Time: 14:39 Interval history: Overall feels well today. No dizziness or passing out. No fever/chills. No palpitations or chest pain. He is having pain around the wound vac/PPM explant site. - Review of Systems General: denies: fever/chills, weight/appetite/sleep changes, night sweats, fatigue Respiratory: denies: cough, congestion, shortness of breath, exercise intolerance Cardiovascular: denies: chest pain, palpitation, edema, paroxysmal nocturnal dyspnea, orthopnea Gastrointestinal: denies: nausea, vomiting, diarrhea, constipation, abd pain, GI bleeding Musculoskeletal: reports: pain. denies: tenderness, stiffness, swelling, arthritis/arthralgias - Objective Allergies/Adverse Reactions: Allergies Allergy/AdvReac Type Severity Reaction Status Date / Time allopurinol Allergy Rash Verified 08/16/19 19:49 tramadol Allergy syncope Verified 08/16/19 19:49 Visit Medications: Current Medications Acetaminophen (Tylenol) 650 mg PO Q4H PRN PRN Reason: Fever/MILD Pain 1-3 Acetaminophen (Tylenol) 1,000 mg PO BID PRN PRN Reason: Pain Last Admin: 08/17/19 08:56 Dose: 1,000 mg Acetaminophen/Codeine Phosphate (Tylenol #3) 1 tab PO Q4H PRN PRN Reason: Mild Pain (1-3) Acetaminophen/Codeine Phosphate (Tylenol #3) 2 tab PO Q4H PRN PRN Reason: Moderate Pain (4-6) Last Admin: 08/19/19 10:58 Dose: 2 tab Aspirin (Ecotrin) 81 mg PO DAILY [facility] Last Admin: 08/19/19 08:48 Dose: 81 mg Colchicine (Colchicine) 0.6 mg PO DAILY [facility] Last Admin: 08/19/19 08:50 Dose: 0.6 mg Enoxaparin Sodium (Lovenox) 40 mg SC 0900 [facility] Last Admin: 08/19/19 08:50 Dose: Not Given Finasteride (Proscar) 5 mg PO HS [facility] Last Admin: 08/18/19 20:06 Dose: 5 mg Furosemide (Lasix) 40 mg PO DAILY [facility] Last Admin: 08/19/19 08:48 Dose: 40 mg Vancomycin HCl 2 gm/ Sodium (Chloride) 500 mls @ 250 mls/hr IVPB 0100,1300 [facility] Last Admin: 08/19/19 12:56 Dose: 500 mls Miscellaneous Medication (Pharmacy To Dose) 1 each IVPB PRN PRN PRN Reason: Pharmacy to dose Morphine Sulfate (Morphine) 2 mg SLOW IVP Q6H PRN PRN Reason: Severe Pain (7-10) Last Admin: 08/18/19 09:41 Dose: 2 mg Mupirocin (Bactroban 2% Ointment) 1 gm TOP BID [facility] Last Admin: 08/19/19 08:51 Dose: 1 applic Ondansetron HCl (Zofran Odt) 4 mg PO Q6H PRN PRN Reason: Nausea/Vomiting Ondansetron HCl (Zofran) 4 mg IVP Q6H PRN PRN Reason: Nausea/Vomiting Sodium Chloride (Flush - Normal Saline) 10 ml IVF Q12HR [facility] Last Admin: 08/19/19 08:56 Dose: 10 ml Sodium Chloride (Flush - Normal Saline) 10 ml IVF PRN PRN PRN Reason: Saline Flush Tamsulosin HCl (Flomax) 0.8 mg PO DAILY [facility] Vital Signs & Weight: Vital Signs Temp Pulse Resp BP Pulse Ox 08/19/19 08:00 97.9 F 48 L 18 111/69 100 08/19/19 04:16 97.4 F L 48 L 17 114/68 98 Admit Weight 241 lb Weight 243 lb 3 oz - Physical Exam General: alert & oriented x3 HEENT: mucus membranes moist Neck: supple neck, no JVD/HJR Cardiac: regular rate and rhythm, no murmur Lungs: clear to auscultation, normal breath sounds Neuro: grossly intact Abdomen: unremarkable, active bowel sounds Skin: other (wound vac to left chest wall) - Labs Result Diagrams: 08/17/19 04:49 08/19/19 09:30 - Telemetry Sinus rhythms and dysrhythmias: sinus rhythm - Assessment/Plan Assessment/Plan: 1. Infected pacemaker/pocket - s/p explant on 08/17 - pocket culture sent 08/17: growing staph aureus - wound swab by ID sent: growing staph aureus - Infectious disease managing anbx - blood cultures pending (no growth thus far) - PRN T#3. Morphine IVP to help with acute pain during wound vac application/ management 2. Tachy-jenny syndrome with sinus node dysfunction - stopped all AV giancarlo blocking agents. so far heart rates are stable~50bpm. No immediate need for temp pacer 3. Parox Atrial fibrillation - low burden previously seen on PPM - no OAC at this time CHADS2-VAC: 1 (hx CAD). On ASA which is adequate 4. JOHN -ordered CPAP. Wound care consulted for wound vac to pocket and wound management. Case management involved to assist in arranging home health vs wound care closer to where he lives. So far his heart rates have remained stable off beta blockers. If his AF is manageable without betablocker we may be able to avoid re-implant of PPM. Eventually, I feel he would likely benefit from a PVAI but we will address this as OP. For now I feel we are safe just watching his rhythm for any recurrent AF , holding off on PPM implant. OK for DC by EP once medical issues are stable and home arrangement are in place.
[2019-08-19] MEDS: Finasteride 5 MG TAB PO SCH (21:33)
[2019-08-20] MEDS: Acetaminophen/Codeine 30-300mg Tablet PO PRN ×6 (01:47→22:51)
[2019-08-20] MEDS: Morphine 2 MG/ML SYRINGE SLOW IVP PRN (08:54)
[2019-08-20] MEDS: Aspirin 81 mg Enteric Coated Tablet PO SCH (09:00)
[2019-08-20] MEDS: Furosemide 40 MG TAB PO SCH (09:00)
[2019-08-20] MEDS: Tamsulosin HCl 0.4 MG CAP PO SCH (09:00)
[2019-08-20] MEDS: Mupirocin 2% Ointment 22 GM Tube TOP SCH ×2 (09:01→20:44)
[2019-08-20] MEDS: Enoxaparin Sodium 40 MG/0.4 ML SYRINGE SC SCH (09:01)
[2019-08-20] MEDS: diphenhydrAMINE 25 MG CAP PO SCH (13:24)
--- NOTE | 2019-08-20 15:00 | PDOC.HOSPP ---
- Subjective Subjective: Seen and examined. Cultures confirmed to be MRSA, patient responding to vancomycin therapy. Many questions were asked, all answered in detail. Patient is getting his wound VAC change today per wound care. sr. strategic sourcing manager to set up wound VAC for the home setting. Antibiotics per ID, to be determined. - Objective Vital Signs & Weight: Vital Signs (12 hours) Temp Pulse Resp BP Pulse Ox 08/20/19 08:00 96.6 F L 50 L 17 114/63 99 08/20/19 04:00 97.7 F 52 L 18 119/72 97 Weight Admit Weight 241 lb Weight 237 lb 9.6 oz I&O: 08/19/19 08/20/19 08/21/19 06:59 06:59 06:59 Intake Total 1190 Balance 1190 Result Diagrams: 08/17/19 04:49 08/19/19 09:30 Hospitalist ROS - Review of Systems All other systems reviewed; all pertinent +/- noted in HPI/Subj - Medication Medications: Active Medications Generic Name Dose Route Start Last Admin Trade Name Freq PRN Reason Stop Dose Admin Acetaminophen 1,000 mg 08/16/19 23:12 08/17/19 08:56 Tylenol PO 1,000 mg BID PRN Administration Pain Acetaminophen/Codeine Phosphate 2 tab 08/17/19 17:22 08/20/19 13:57 Tylenol #3 PO 2 tab Q4H PRN Administration Moderate Pain (4-6) Aspirin 81 mg 08/17/19 09:00 08/20/19 09:00 Ecotrin PO 81 mg DAILY NIDIA Administration Colchicine 0.6 mg 08/18/19 09:00 08/20/19 09:01 Colchicine PO Not Given DAILY NIDIA Diphenhydramine HCl 25 mg 08/20/19 13:00 08/20/19 13:24 Benadryl PO 25 mg 0100,1300 NIDIA Administration Enoxaparin Sodium 40 mg 08/17/19 09:00 08/20/19 09:01 Lovenox SC Not Given 0900 NIDIA Finasteride 5 mg 08/17/19 21:00 08/19/19 21:33 Proscar PO 5 mg HS NIDIA Administration Furosemide 40 mg 08/17/19 09:00 08/20/19 09:00 Lasix PO 40 mg DAILY NIDIA Administration Vancomycin HCl 2 gm/ Sodium 500 mls @ 250 mls/hr 08/17/19 01:00 08/20/19 13: 56 Chloride IVPB 500 mls 0100,1300 NIDIA Administration Morphine Sulfate 2 mg 08/18/19 09:13 08/20/19 08:54 Morphine SLOW IVP 2 mg Q6H PRN Administration Severe Pain (7-10) Mupirocin 1 gm 08/18/19 21:00 08/20/19 09:01 Bactroban 2% Ointment TOP 1 applic BID NIDIA Administration Sodium Chloride 10 ml 08/17/19 09:00 08/20/19 09:01 Flush - Normal Saline IVF 10 ml Q12HR NIDIA Administration Tamsulosin HCl 0.8 mg 08/20/19 09:00 08/20/19 09:00 Flomax PO 0.8 mg DAILY NIDIA Administration - Exam General Appearance: NAD, awake alert Eye: anicteric sclera ENT: normocephalic atraumatic, moist mucosa Neck: supple, symmetric, no lymphadenopathy Heart: no murmur, no gallops, no rubs Heart - other findings: regular rate this AM Respiratory: CTAB, no wheezes, no rales, no ronchi Gastrointestinal: soft, non-tender, non-distended, no guarding, no rigidity Extremities: no edema Skin: no rashes Neurological: cranial nerve grossly intact, no focal deficits Musculoskeletal: no muscle wasting Psychiatric: normal affect, A&O x 3 Hosp A/P (1) Bradycardia Code(s): R00.1 - BRADYCARDIA, UNSPECIFIED Status: Chronic (2) Chest pain Code(s): R07.9 - CHEST PAIN, UNSPECIFIED Status: Chronic (3) Heart failure Code(s): I50.9 - HEART FAILURE, UNSPECIFIED Status: Chronic (4) Hyperlipidemia Code(s): E78.5 - HYPERLIPIDEMIA, UNSPECIFIED Status: Chronic (5) Hypertension Code(s): I10 - ESSENTIAL (PRIMARY) HYPERTENSION Status: Chronic - Plan Plan: medical unit with telemetry cardiology/electrophysiology specialists consultation, recommendations appreciated infectious disease consultation, recommendations appreciated AICD to be replaced when able IV antibiotics per infectious disease specialist wound with Staphylococcus aureus, sensitivity noted to be MRSA blood cultures negative to date Finasteride for BPH Increased Flomax for BPH continue home medications as able
--- NOTE | 2019-08-20 15:53 | PRG ---
DATE OF SERVICE: 08/20/2019 SUBJECTIVE: No headaches. No change in visual symptoms, sore throat, odynophagia, or dysphagia. Still with what he describes as the same pain that he had before in the left shoulder, left axillary rib area, and the pacer pocket site. Pacer has been removed with the leads. No dyspnea. No abdominal pain or diarrhea. No genitourinary symptoms. OBJECTIVE: VITAL SIGNS: T-max 98.5, blood pressure 117/72, pulse 61, respirations 20, O2 saturation 95. GENERAL: Appears in no distress. EXTREMITIES: Left shoulder area with a negative pressure dressing, very mild erythema, moderate tenderness around the area there including the clavicle and the anterior axillary region, left side. LUNGS: Clear. HEART: S1 and S2. Regular rate. ABDOMEN: Soft. Not distended or tender. No ascites. No bladder distention. NEUROLOGIC: Cognitive function appears to be intact. LABORATORY DATA: White cell count has not been repeated. Creatinine is 0.83. Microbiology with MRSA, which is susceptible to clindamycin, doxycycline, rifampin, Bactrim, and vancomycin. ASSESSMENT AND DISCUSSION: Sick sinus syndrome, pacemaker placement, and postop infection with methicillin-resistant staphylococcus aureus. We will continue vancomycin and then for discharge, planning doxycycline and rifampin for 2 weeks. Follow up in the outpatient setting. Job ID: [id number]
[2019-08-20] MEDS: Finasteride 5 MG TAB PO SCH (20:44)
[2019-08-21] MEDS: diphenhydrAMINE 25 MG CAP PO SCH ×2 (00:16→12:33)
[2019-08-21] MEDS: Acetaminophen/Codeine 30-300mg Tablet PO PRN ×5 (04:01→21:26)
[2019-08-21] MEDS: Aspirin 81 mg Enteric Coated Tablet PO SCH (08:15)
[2019-08-21] MEDS: Furosemide 40 MG TAB PO SCH (08:15)
[2019-08-21] MEDS: Tamsulosin HCl 0.4 MG CAP PO SCH (08:15)
[2019-08-21] MEDS: Enoxaparin Sodium 40 MG/0.4 ML SYRINGE SC SCH (08:16)
[2019-08-21] MEDS: Mupirocin 2% Ointment 22 GM Tube TOP SCH ×2 (08:17→22:57)
[2019-08-21 12:52] LABS: Vancomycin, Trough 22.8 ug/mL
--- NOTE | 2019-08-21 15:44 | PDOC.HOSPP ---
- Subjective Subjective: Seen and examined. Progressing as expected. Wound VAC in place. Dr. Welch asked the patient to be NPO past midnight for possible pacemaker placement tomorrow morning. When I discussed this the with the patient he is concerned that it would get reinfected and he is not sure that he wants one. Patient with MRSA in wound, planning for transition to oral antibiotics on discharge. - Objective Vital Signs & Weight: Vital Signs (12 hours) Temp Pulse Resp BP Pulse Ox 08/21/19 12:00 98.7 F 55 L 18 117/70 97 08/21/19 08:00 97.0 F L 49 L 18 124/72 97 08/21/19 07:54 97 08/21/19 04:00 96.6 F L 52 L 16 108/71 92 L Weight Admit Weight 241 lb Weight 239 lb I&O: 08/20/19 08/21/19 08/22/19 06:59 06:59 06:59 Intake Total 1190 2400 Balance 1190 2400 Result Diagrams: 08/17/19 04:49 08/19/19 09:30 Hospitalist ROS - Review of Systems All other systems reviewed; all pertinent +/- noted in HPI/Subj - Medication Medications: Active Medications Generic Name Dose Route Start Last Admin Trade Name Freq PRN Reason Stop Dose Admin Acetaminophen 1,000 mg 08/16/19 23:12 08/17/19 08:56 Tylenol PO 1,000 mg BID PRN Administration Pain Acetaminophen/Codeine Phosphate 2 tab 08/17/19 17:22 08/21/19 12:34 Tylenol #3 PO 2 tab Q4H PRN Administration Moderate Pain (4-6) Aspirin 81 mg 08/17/19 09:00 08/21/19 08:15 Ecotrin PO 81 mg DAILY NIDIA Administration Colchicine 0.6 mg 08/18/19 09:00 08/21/19 08:16 Colchicine PO Not Given DAILY NIDIA Diphenhydramine HCl 25 mg 08/20/19 13:00 08/21/19 12:33 Benadryl PO 25 mg 0100,1300 NIDIA Administration Enoxaparin Sodium 40 mg 08/17/19 09:00 08/21/19 08:16 Lovenox SC Not Given 0900 NIDIA Finasteride 5 mg 08/17/19 21:00 08/20/19 20:44 Proscar PO 5 mg HS NIDIA Administration Furosemide 40 mg 08/17/19 09:00 08/21/19 08:15 Lasix PO 40 mg DAILY NIDIA Administration Morphine Sulfate 2 mg 08/18/19 09:13 08/20/19 08:54 Morphine SLOW IVP 2 mg Q6H PRN Administration Severe Pain (7-10) Mupirocin 1 gm 08/18/19 21:00 08/21/19 08:17 Bactroban 2% Ointment TOP 1 applic BID NIDIA Administration Sodium Chloride 10 ml 08/17/19 09:00 08/21/19 08:17 Flush - Normal Saline IVF 10 ml Q12HR NIDIA Administration Sodium Chloride 10 ml 08/16/19 21:02 08/21/19 01:02 Flush - Normal Saline IVF 10 ml PRN PRN Administration Saline Flush Tamsulosin HCl 0.8 mg 08/20/19 09:00 08/21/19 08:15 Flomax PO 0.8 mg DAILY NIDIA Administration - Exam General Appearance: NAD, awake alert Eye: anicteric sclera ENT: normocephalic atraumatic, moist mucosa Neck: supple, symmetric, no lymphadenopathy Heart: no murmur, no gallops, no rubs Respiratory: CTAB, no wheezes, no rales, no ronchi Gastrointestinal: soft, non-tender, non-distended, no guarding, no rigidity Extremities: no edema Skin: no lesions, no rashes Skin - other findings: Wound vac left upper chest Neurological: cranial nerve grossly intact, no weakness Musculoskeletal: normal strength Psychiatric: normal affect, A&O x 3 Hosp A/P (1) Bradycardia Code(s): R00.1 - BRADYCARDIA, UNSPECIFIED Status: Chronic (2) Chest pain Code(s): R07.9 - CHEST PAIN, UNSPECIFIED Status: Chronic (3) Heart failure Code(s): I50.9 - HEART FAILURE, UNSPECIFIED Status: Chronic (4) Hyperlipidemia Code(s): E78.5 - HYPERLIPIDEMIA, UNSPECIFIED Status: Chronic (5) Hypertension Code(s): I10 - ESSENTIAL (PRIMARY) HYPERTENSION Status: Chronic - Plan Plan: medical unit with telemetry cardiology/electrophysiology specialists consultation, recommendations appreciated infectious disease consultation, recommendations appreciated AICD to be replaced when able, possibly tomorrow per document design specialist - though patient is worried that it will become infected again IV antibiotics per infectious disease specialist, Oral ABX on D/c wound with Staphylococcus aureus, sensitivity noted to be MRSA blood cultures negative to date Finasteride for BPH Flomax for BPH continue home medications as able
[2019-08-21] MEDS: Finasteride 5 MG TAB PO SCH (21:28)
[2019-08-21] MEDS ORDERED: Nortriptyline 10 MG CAP ONE (22:13)
[2019-08-22] MEDS: diphenhydrAMINE 25 MG CAP PO SCH ×2 (00:25→14:57)
[2019-08-22] MEDS: Acetaminophen/Codeine 30-300mg Tablet PO PRN ×5 (01:23→21:49)
[2019-08-22] MEDS: Vancomycin HCl 1.75 GM in Sodium Chloride 0.9% 500 ML IVPB SCH ×4 (01:26→14:54)
[2019-08-22 08:13] LABS: #Eosinphils 0.5 thou/uL (0.0-0.7); #Lymphocytes 2.1 thou/uL (1.20-3.40); #Monocytes 0.5 thou/uL (0.11-0.59); #Neutrophils 1.4 thou/uL (1.40-6.50); %Basophils 0.2 % (0.0-1.0); %Eosinophils 10.9 % (0.0-10.0); %Lymphocytes 47.9 % (21.0-51.0); %Monocytes 10.2 % (0.0-10.0); %Neutrophils 30.8 % (42.0-75.0); Hemoglobin 14.8 g/dL (14.0-18.0); Mean Corpuscular HGB CONC 34.6 g/dL (32.0-36.0); Mean Corpuscular Hemoglobin 31.2 pg (27.0-31.0); Mean Corpuscular Volume 90.3 fL (78.0-98.0); Mean Platelet Volume 7.2 fL (7.4-10.4); Platelet Count 291 thou/uL (130-400); RBC Distribution Width 11.8 % (11.5-14.5); Red Blood Cell (RBC) Count 4.74 mill/uL (4.70-6.10); White Blood Cell (WBC) Count 4.5 thou/uL (4.8-10.8)
[2019-08-22 08:39] LABS: Anion Gap 11 mmol/L (10-20); BUN (Urea Nitrogen) 10 mg/dL (8.4-25.7); Calc. Creatinine Clearance 148 mL/min (70-130); Calcium 9.2 mg/dL (7.8-10.44); Carbon Dioxide 30 mmol/L (22-29); Chloride 102 mmol/L (98-107); Estimated GFR-MDRD 89; Glucose 93 mg/dL (70-105); Potassium 4.1 mmol/L (3.5-5.1); Sodium 139 mmol/L (136-145)
[2019-08-22] MEDS: Furosemide 40 MG TAB PO SCH (08:54)
[2019-08-22] MEDS: Tamsulosin HCl 0.4 MG CAP PO SCH (08:54)
[2019-08-22] MEDS: Aspirin 81 mg Enteric Coated Tablet PO SCH (08:54)
[2019-08-22] MEDS: Enoxaparin Sodium 40 MG/0.4 ML SYRINGE SC SCH ×2 (08:56→09:03)
--- NOTE | 2019-08-22 11:45 | PRG ---
DATE OF SERVICE: 08/22/2019 SUBJECTIVE: Mr. Hooks seems to be doing fair over the weekend. He has mild fatigue, but no other extreme bradycardic symptoms. He denied dizziness or loss of consciousness. No stroke-like symptoms. No neurological deficits. Denies fever, chills, or cough. His pacemaker explant site is with wound VAC with mild discomfort only. OBJECTIVE DATA: VITAL SIGNS: Blood pressure is 114/71, heart rate 46, respirations 16, and temperature 97.4 degrees Fahrenheit. GENERAL: Alert and oriented man, in no apparent distress. NECK: Supple. Jugular veins not distended. CHEST: Coarse without crackles. HEART: Sounds are regular to rate and rhythm. No murmur or gallop. ABDOMEN: Benign. Bowel sounds positive. EXTREMITIES: Lower extremities without edema, clubbing, or cyanosis. The precordial pacemaker explant site is in wound VAC without reaction. DATABASE: Telemetry strips reviewed revealing sinus rhythm, sinus bradycardia, lowest in the 40s mostly at nighttime sleeping hours, high 40s with 50s at rest with increasing heart rate with exercise. LABORATORY DATA: White cell count is 4.5, hemoglobin 14.8, platelet count is 291. Today, sodium 139, potassium 4.1, BUN is 10, and creatinine 0.9. The microbiology reviewed revealing no growth x2 days from the blood cultures on the 8th x2 sets. From wound cultures, methicillin-resistant Staph aureus has been resulted, sensitive to rifampin, clindamycin, and doxycycline. ASSESSMENT AND PLAN: Mr. Hooks is a pleasant 54-year-old man with history of sick sinus syndrome and paroxysmal atrial fibrillation, who underwent a dual-chamber pacemaker implantation, then required explant due to pacemaker pocket infection. Now, it seems to be healing up well, although his pocket wound did grow methicillin-resistant Staphylococcus aureus. He is adequately treated with vancomycin on that. Dr. Caban, the ID specialist, has evaluated him and recommended vancomycin for discharge and then switching to doxycycline and rifampin for 2 weeks. The wound VAC seems to be adequately treating the pacemaker extraction site on left precordial area, which was left open for secondary healing. I discussed the future treatment options with the patient. Although, he still has moderate bradycardia. He is not extreme symptomatic mostly at rest at nighttime. He seems to have racing his heart rate adequately with exertion. So far, no severe bradycardic symptoms and therefore, pacemaker implantation is not emergent. We discussed the option of continued antibiotic therapy as advised and bleeding with the implant to minimize the chance of infection. Also, depending on his symptoms, we could consider pulmonary venous isolation procedure in the future. For now, we will hold off on the anticoagulant, hence he has no recurrent atrial fibrillation seen. He is advised to start that if he experiences rapid heartbeats with atrial fibrillation as well. He will be discharged as per Dr. Caban' recommendation of doxycycline and rifampin for 2 weeks. I will see him back in 4 to 6 weeks for followup and in 2 weeks for wound check. For now, we will hold anticoagulation as well and also avoid beta-blockers. Job ID: [id number]
[2019-08-22] MEDS: Mupirocin 2% Ointment 22 GM Tube TOP SCH ×2 (12:02→20:39)
--- NOTE | 2019-08-22 13:04 | PDOC.HOSPP ---
- Subjective Subjective: Seen and examined. Patient has elected that he would like to hold off on replacement of pacemaker as he is afraid that it will become infected. Patient otherwise progressing as expected. Wound VAC in place. Case management to set up wound VAC in the home setting to be managed by home healthcare. - Objective Vital Signs & Weight: Vital Signs (12 hours) Temp Pulse Resp BP Pulse Ox 08/22/19 08:00 97.6 F 46 L 16 114/71 97 08/22/19 03:38 97.7 F 49 L 16 121/66 99 08/22/19 02:29 48 L 115/69 97 Weight Admit Weight 241 lb Weight 240 lb I&O: 08/21/19 08/22/19 08/23/19 06:59 06:59 06:59 Intake Total 2400 720 Balance 2400 720 Result Diagrams: 08/22/19 07:44 08/22/19 07:44 Hospitalist ROS - Review of Systems All other systems reviewed; all pertinent +/- noted in HPI/Subj - Medication Medications: Active Medications Generic Name Dose Route Start Last Admin Trade Name Freq PRN Reason Stop Dose Admin Acetaminophen 1,000 mg 08/16/19 23:12 08/17/19 08:56 Tylenol PO 1,000 mg BID PRN Administration Pain Acetaminophen/Codeine Phosphate 2 tab 08/17/19 17:22 08/22/19 12:01 Tylenol #3 PO 2 tab Q4H PRN Administration Moderate Pain (4-6) Aspirin 81 mg 08/17/19 09:00 08/22/19 08:54 Ecotrin PO 81 mg DAILY NIDIA Administration Colchicine 0.6 mg 08/18/19 09:00 08/22/19 08:55 Colchicine PO Not Given DAILY NIDIA Diphenhydramine HCl 25 mg 08/20/19 13:00 08/22/19 00:25 Benadryl PO 25 mg 0100,1300 NIDIA Administration Enoxaparin Sodium 40 mg 08/17/19 09:00 08/22/19 09:03 Lovenox SC Not Given 0900 NIDIA Finasteride 5 mg 08/17/19 21:00 08/21/19 21:28 Proscar PO 5 mg HS NIDIA Administration Furosemide 40 mg 08/17/19 09:00 08/22/19 08:54 Lasix PO 40 mg DAILY NIDIA Administration Vancomycin HCl 1.75 gm/ Sodium 500 mls @ 250 mls/hr 08/22/19 01:00 08/22/19 02:40 Chloride IVPB 500 mls 0100,1300 NIDIA Administration Morphine Sulfate 2 mg 08/18/19 09:13 08/20/19 08:54 Morphine SLOW IVP 2 mg Q6H PRN Administration Severe Pain (7-10) Mupirocin 1 gm 08/18/19 21:00 08/22/19 12:02 Bactroban 2% Ointment TOP 1 applic BID NIDIA Administration Sodium Chloride 10 ml 08/17/19 09:00 08/22/19 08:56 Flush - Normal Saline IVF 10 ml Q12HR NIDIA Administration Sodium Chloride 10 ml 08/16/19 21:02 08/21/19 01:02 Flush - Normal Saline IVF 10 ml PRN PRN Administration Saline Flush Tamsulosin HCl 0.8 mg 08/20/19 09:00 08/22/19 08:54 Flomax PO 0.8 mg DAILY NIDIA Administration - Exam General Appearance: NAD, awake alert Eye: anicteric sclera ENT: normocephalic atraumatic, moist mucosa Neck: supple, symmetric, no lymphadenopathy Heart: no murmur, no gallops, no rubs Heart - other findings: Bradycardia Respiratory: CTAB, no wheezes, no rales Gastrointestinal: soft, non-tender, non-distended, normal bowel sounds, no guarding, no rigidity Extremities: no edema Skin: no lesions, no rashes Skin - other findings: Wound vac in position Neurological: cranial nerve grossly intact, no weakness Musculoskeletal: no muscle wasting Psychiatric: normal affect, A&O x 3 Hosp A/P (1) Bradycardia Code(s): R00.1 - BRADYCARDIA, UNSPECIFIED Status: Chronic (2) Chest pain Code(s): R07.9 - CHEST PAIN, UNSPECIFIED Status: Chronic (3) Heart failure Code(s): I50.9 - HEART FAILURE, UNSPECIFIED Status: Chronic (4) Hyperlipidemia Code(s): E78.5 - HYPERLIPIDEMIA, UNSPECIFIED Status: Chronic (5) Hypertension Code(s): I10 - ESSENTIAL (PRIMARY) HYPERTENSION Status: Chronic - Plan Plan: medical unit with telemetry cardiology/electrophysiology specialists consultation, recommendations appreciated infectious disease consultation, recommendations appreciated Permanent pacemaker on hold for now IV antibiotics per infectious disease specialist, Oral ABX on D/c wound with Staphylococcus aureus, sensitivity noted to be MRSA blood cultures negative to date Finasteride for BPH Flomax for BPH continue home medications as able CM to help with setting up wound vac in the home setting
[2019-08-22] MEDS: Finasteride 5 MG TAB PO SCH (20:39)
[2019-08-23] MEDS: Vancomycin HCl 1.75 GM in Sodium Chloride 0.9% 500 ML IVPB SCH ×2 (02:03→13:30)
[2019-08-23] MEDS: diphenhydrAMINE 25 MG CAP PO SCH ×2 (02:03→13:30)
[2019-08-23] MEDS: Acetaminophen/Codeine 30-300mg Tablet PO PRN ×4 (02:04→16:25)
[2019-08-23 06:28] VITALS: BMI 28.2
[2019-08-23] MEDS ORDERED: Tamsulosin HCl 0.4 MG CAP PO SCH (09:00)
[2019-08-23] MEDS: Aspirin 81 mg Enteric Coated Tablet PO SCH (09:14)
[2019-08-23] MEDS: Furosemide 40 MG TAB PO SCH (09:14)
[2019-08-23] MEDS: Tamsulosin HCl 0.4 MG CAP PO SCH ×2 (09:14→11:45)
[2019-08-23] MEDS: Morphine 2 MG/ML SYRINGE SLOW IVP PRN (09:19)
[2019-08-23] MEDS: Mupirocin 2% Ointment 22 GM Tube TOP SCH (09:28)
[2019-08-23] MEDS: Enoxaparin Sodium 40 MG/0.4 ML SYRINGE SC SCH (09:29)
[2019-08-23] MEDS ORDERED: Tamsulosin HCl 0.4 MG CAP ONE (10:53)
--- NOTE | 2019-08-23 14:53 | PDOC.CPN ---
- Subjective Date: 08/23/19 (EP FOLLOW UP NOTE) Time: 08:00 Interval history: Overall feels well today. No dizziness or passing out. No fever/chills. No palpitations or chest pain. He is having pain around the wound vac/PPM explant site. + fatigue. - Review of Systems General: reports: fatigue. denies: fever/chills, weight/appetite/sleep changes , night sweats Respiratory: denies: cough, congestion, shortness of breath, exercise intolerance Cardiovascular: denies: chest pain, palpitation, edema, paroxysmal nocturnal dyspnea, orthopnea Gastrointestinal: denies: nausea, vomiting, diarrhea, constipation, abd pain, GI bleeding Musculoskeletal: reports: pain (at explant site with dressing changes). denies : tenderness, stiffness, swelling, arthritis/arthralgias Neurological: denies: numbness, syncope, seizure, weakness - Objective Allergies/Adverse Reactions: Allergies Allergy/AdvReac Type Severity Reaction Status Date / Time allopurinol Allergy Rash Verified 08/16/19 19:49 tramadol Allergy syncope Verified 08/16/19 19:49 Visit Medications: Current Medications Acetaminophen (Tylenol) 650 mg PO Q4H PRN PRN Reason: Fever/MILD Pain 1-3 Acetaminophen (Tylenol) 1,000 mg PO BID PRN PRN Reason: Pain Last Admin: 08/17/19 08:56 Dose: 1,000 mg Acetaminophen/Codeine Phosphate (Tylenol #3) 1 tab PO Q4H PRN PRN Reason: Mild Pain (1-3) Acetaminophen/Codeine Phosphate (Tylenol #3) 2 tab PO Q4H PRN PRN Reason: Moderate Pain (4-6) Last Admin: 08/23/19 11:35 Dose: 2 tab Aspirin (Ecotrin) 81 mg PO DAILY [facility] Last Admin: 08/23/19 09:14 Dose: 81 mg Colchicine (Colchicine) 0.6 mg PO DAILY [facility] Last Admin: 08/23/19 09:28 Dose: Not Given Diphenhydramine HCl (Benadryl) 25 mg PO 0100,1300 [facility] Last Admin: 08/23/19 02:03 Dose: 25 mg Enoxaparin Sodium (Lovenox) 40 mg SC 0900 [facility] Last Admin: 08/23/19 09:29 Dose: Not Given Finasteride (Proscar) 5 mg PO HS [facility] Last Admin: 08/22/19 20:39 Dose: 5 mg Furosemide (Lasix) 40 mg PO DAILY [facility] Last Admin: 08/23/19 09:14 Dose: 40 mg Vancomycin HCl 1.75 gm/ Sodium (Chloride) 500 mls @ 250 mls/hr IVPB 0100,1300 [facility] Last Admin: 08/23/19 02:03 Dose: 500 mls Miscellaneous Medication (Pharmacy To Dose) 1 each IVPB PRN PRN PRN Reason: Pharmacy to dose Morphine Sulfate (Morphine) 2 mg SLOW IVP Q6H PRN PRN Reason: Severe Pain (7-10) Last Admin: 08/23/19 09:19 Dose: 2 mg Mupirocin (Bactroban 2% Ointment) 1 gm TOP BID [facility] Last Admin: 08/23/19 09:28 Dose: 1 applic Ondansetron HCl (Zofran Odt) 4 mg PO Q6H PRN PRN Reason: Nausea/Vomiting Ondansetron HCl (Zofran) 4 mg IVP Q6H PRN PRN Reason: Nausea/Vomiting Sodium Chloride (Flush - Normal Saline) 10 ml IVF Q12HR [facility] Last Admin: 08/23/19 09:27 Dose: 10 ml Sodium Chloride (Flush - Normal Saline) 10 ml IVF PRN PRN PRN Reason: Saline Flush Last Admin: 08/22/19 14:55 Dose: 10 ml Tamsulosin HCl (Flomax) 0.8 mg PO DAILY [facility] Last Admin: 08/23/19 11:37 Dose: 0.8 mg Vital Signs & Weight: Vital Signs Temp Pulse Resp BP Pulse Ox 08/23/19 13:02 98.0 F 60 18 116/67 96 08/23/19 08:00 98.0 F 74 16 129/64 96 08/23/19 04:00 97.1 F L 49 L 18 111/69 93 L Admit Weight 241 lb Weight 238 lb 1.6 oz - Physical Exam General: alert & oriented x3, appears well, no apparent distress HEENT: mucus membranes moist, normocephaly Neck: supple neck, midline trachea, no JVD/HJR, no masses, no bruit, no lymphadenopathy, no thromegaly Cardiac: regular rate and rhythm Lungs: clear to auscultation, normal breath sounds, normal exam, no wheeze, rales, rhonchi Neuro: grossly intact - Labs Result Diagrams: 08/22/19 07:44 08/22/19 07:44 - Assessment/Plan Assessment/Plan: 1. Infected pacemaker/pocket - s/p explant on 08/17 - wound swab/pocket culture 08/17: MRSA - Infectious disease managing anbx - PRN T#3. Morphine IVP to help with acute pain during wound vac application/ management 2. Tachy-jenny syndrome with sinus node dysfunction - stopped all AV giancarlo blocking agents. so far heart rates are stable~50bpm. No immediate need for temp pacer 3. Parox Atrial fibrillation - low burden previously seen on PPM - no OAC at this time CHADS2-VAC: 1 (hx CAD). On ASA which is adequate 4. JOHN -ordered CPAP. OK for DC by EP. No significant bradycardia off AV giancarlo blocking meds. Will see back him back in clinic in 6 weeks for AFib follow up.
[2019-08-23] MEDS ORDERED: Doxycycline 100 MG CAP PO SCH ×2 (15:00→21:00)
[2019-08-23] MEDS ORDERED: Rifampin 300 MG CAP PO SCH ×2 (15:00→22:00)
[2019-08-23 16:10] VITALS: BP 115/68; TEMP 98.3
--- NOTE | 2019-08-24 03:14 | DIS ---
DATE OF ADMISSION: 08/16/2019 DATE OF DISCHARGE: 08/23/2019 REASON FOR HOSPITALIZATION: Infected permanent pacemaker. SIGNIFICANT FINDINGS: The patient was found to have infected permanent pacemaker that required surgical explant, which was performed on 08/17/[address] Welch, please see full operative report for details. The patient was confirmed to have wound organism growing methicillin-resistant Staphylococcus aureus and he was evaluated by infectious disease specialist. Please see full consultation notes and progress notes from Cardiology and Infectious Disease for full details. PROCEDURES PERFORMED AND TREATMENTS RENDERED: The patient had explant surgically on 08/17/[address] Welch, please see full operative report for details. The patient had maximum medical therapy including adjustment of IV antibiotics by infectious disease specialist and the patient had all cardiomyopathy regimen adjusted appropriately by liquified natural gas technician. CONDITION ON DISCHARGE: Stable. SPECIFIC INSTRUCTIONS FOR THE PATIENT/FAMILY: 1. The patient is recommended to complete a full course of oral antibiotics per infectious disease specialist. 2. The patient is recommended to continue all other medications as directed. 3. The patient is recommended to have all medications adjusted as appropriate in the outpatient clinic by primary care physician, Cardiology, and infectious disease specialist within the next 5 to 7 days. 4. The patient is recommended to return to acute care hospital immediately if signs or symptoms return, worsen, or any other new symptoms occur. 5. The patient is recommended to have daily wound care per home health care nurse and continued to have wound VAC management as coordinated by wound care physician and infectious disease doctor. DISCHARGE MEDICATIONS: Please see full discharge medication list for details with the following new medications. 1. Rifampin 600 mg one tablet p.o. b.i.d. for the next 2 weeks. 2. Doxycycline 100 mg one tablet p.o. b.i.d. for the next 2 weeks. 3. All other home medications continued without changes except for the patient was on admission taking cephalexin, this antibiotic has been discontinued by his infectious disease specialist. HOSPITAL COURSE: Mr. 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 The patient gets frequent skin infection and frequently requires antibiotics. The patient is on weekly chlorhexidine baths. The patient does frequently get methicillin-resistant Staphylococcus aureus skin infections and ultimately unfortunately the patient did have an infected permanent pacemaker. The pacemaker was successfully removed by Dr. Welch on 08/17/2019-please see full operative report for details. The patient was initially started on broad-spectrum intravenous antibiotics and these were deescalated to culture and sensitivity as appropriate by infectious disease specialist-please see full consultation notes and progress notes from all specialists for details. Efforts were made to set up the patient with wound VAC in the home setting and home health care to be in charge of his daily wound management. The patient was recommended safe for discharge by all specialists on 08/23/2019, with close followup in the outpatient setting. The patient recommended to complete a full course of oral antibiotics as recommended by infectious disease specialist. The patient recommended to see primary care physician, Cardiology, and infectious disease specialist in the next 1 to 2 weeks and have all medications adjusted as appropriate. The patient is recommended to return to acute care hospital immediately if there are any new signs or symptoms. The patient with tachy-jenny syndrome was monitored on continuous telemetry throughout his hospitalization and there were no episodes of tachycardia. The patient may require medical or surgical intervention in the future for tachy-jenny syndrome and he may require additional pacemaker placement. This was put on hold until further notice by Cardiology. The patient is recommended to continue to monitor his heart rate and alert Cardiology if there are any abnormalities either in rapid or slow rates. Greater than 40 minutes spent coordinating care and discharge process for this patient. Job ID: [id number]
== END 2019-08-23 16:48 | disposition home health service (06) | DRG 261 ==
LOC: 2NO 18:26
PROVIDERS: ADMIT Internal Medicine; ATTEND Internal Medicine
PROC: 02PA3MZ Removal of Cardiac Lead from Heart, Percutaneous Approach (ICD-10-PCS; principal; 2019-08-17)
PROC: 0JPT0PZ Removal of Cardiac Rhythm Related Device from Trunk Subcutaneous Tissue and Fascia, Open Approach (ICD-10-PCS; 2019-08-17)
DX: T82.7XXA Infection and inflammatory reaction due to other cardiac and vascular devices, implants and grafts, initial encounter (principal); L03.313 Cellulitis of chest wall; Y71.8 Miscellaneous cardiovascular devices associated with adverse incidents, not elsewhere classified; H54.8 Legal blindness, as defined in USA; I25.10 Atherosclerotic heart disease of native coronary artery without angina pectoris; I50.9 Heart failure, unspecified; E78.00 Pure hypercholesterolemia, unspecified; M1A.9XX0 Chronic gout, unspecified, without tophus (tophi); I49.5 Sick sinus syndrome; N40.0 Benign prostatic hyperplasia without lower urinary tract symptoms; I48.0 Paroxysmal atrial fibrillation; G47.33 Obstructive sleep apnea (adult) (pediatric); I11.0 Hypertensive heart disease with heart failure; B95.62 Methicillin resistant Staphylococcus aureus infection as the cause of diseases classified elsewhere; Z79.82 Long term (current) use of aspirin; Z79.899 Other long term (current) drug therapy; Z87.891 Personal history of nicotine dependence; Z88.5 Allergy status to narcotic agent; Z88.8 Allergy status to other drugs, medicaments and biological substances
CPT/HCPCS: 33241; 33244; 36415; 80048; 80202; 85025; 87040; 87070; 87077; 87186; 87205; 94660; J1650; J2001; J2250; J2270; J2704; J3010; J3370; J3490; J7050; Q0163